=== PATIENT | male | born 1960 | race Caucasian/White ===

== ENCOUNTER 2022-03-02 13:22 | Inpatient (IN) ==
[2022-03-02] MEDS ORDERED: SODIUM CHLORIDE 0.9% 500 ML IV STA (13:34)
--- NOTE | 2022-03-02 13:57 | XRay Report ---
XR chest 1V portable HISTORY: 61 years-old Male Dysrhythmia acute atypical chest pain COMPARISON: Chest radiograph 01/27/2015 TECHNIQUE: Portable AP view of the chest FINDINGS: The cardiac silhouette is enlarged. No pneumothorax, pleural effusion, airspace consolidation or over t pulmonary edema. Degenerative changes of the shoulders and spine. IMPRESSION: Cardiomegaly without acute process. ACT 112: Negative or not required by law. The above report was generated using voice recognition software. It may contain grammatical, syntax o r spelling errors. Electronically signed by: Piotr Chan M.D. 03/02/2022 1:56 PM
[2022-03-02] MEDS ORDERED: dilTIAZem HCl 5 MG/ML 5 ML VIAL IV STA ×2 (14:12→15:10)
[2022-03-02 14:14] LABS: Basophils # (auto) 0.07 K/uL (0-0.2); Basophils % (auto) 0.9 %; Eosinophils # (auto) 0.19 K/uL (0-0.5); Eosinophils % (auto) 2.5 %; Hematocrit (blood only) 42.3 % (42-52); Hemoglobin 14.3 g/dL (14.0-18.0); Immature Granulocytes # (auto) 0.01 K/uL (0.00-0.02); Immature Granulocytes % (auto) 0.1 %; Lymphocytes # (auto) 2.79 K/uL (1.2-3.4); Lymphocytes % (auto) 36.8 %; Mean Corpuscular Hemoglobin 30.8 pg (25-34); Mean Corpuscular Hgb Conc 33.8 g/dL (32-36); Mean Platelet Volume 10.5 fL (7.4-10.4); Monocytes # (auto) 0.85 K/uL (0.11-0.59); Monocytes % (auto) 11.2 %; Neutrophils # (auto) 3.67 K/uL (1.4-6.5); Neutrophils % (auto) 48.5 %; Platelet Count 295 K/uL (130-400); RDW Coefficient of Variation 13.5 % (11.5-14.5); RDW Standard Deviation 44.3 fL (36.4-46.3); Red Blood Count 4.65 M/uL (4.7-6.1); White Blood Count 7.58 K/uL (4.8-10.8)
[2022-03-02 14:17] LABS: Partial Thromboplastin Time 26.2 Seconds (21.0-31.0); Prothrombin Time 10.3 Seconds (9.0-12.0)
--- NOTE | 2022-03-02 14:24 | Emergency Department Note ---
Impression & Plan Atrial flutter with rapid ventricular response, Atrial fibrillation, Near syncope ED Provider Note NAME: SANDRA ARTHUR AGE: 61 SEX: M : 1960 ARRIVES VIA: Walk-In INFORMANT: Patient, ED PROVIDER(S): Chandana Cardoso DO CHIEF COMPLAINT: Palpitations HPI: The patient is a 61-year-old male who presented to the emergency department for an evaluation of palpitations. The patient was noted to have fast heart rate and palpitations over the course the last few weeks. He thinks this could be going on as long as 6 weeks. He states he notices it when he exerts himself. He was having episodes today where he was having shortness of breath with exertion as well as exertional weakness. He was helping move some heavy objects and felt as though he had to lean against a house or else he was going to have near syncope. The patient denies having any lower extremity swelling or pain. He denies having any chest pain. At rest he has no shortness of breath. He states that he called his family doctor today to be seen and was told to go to the emergency department. His significant other has a pulse ox. He checked his heart rate and it was noted to be in the 140's. He does not have a history of alcohol use since 2014. He does not have a history of atrial fibrillation although one time he did have palpitations and was set up with a Holter monitor but no events were found. ROS: See above HPI for pertinent positives & negatives. A total of 10 systems reviewed and were otherwise negative. PAST MEDICAL HISTORY: See Below PAST SURGICAL HISTORY: See Below FAMILY HISTORY: See Below SOCIAL HISTORY: See Below HOME MEDICATIONS: See Below ALLERGIES: See Below VITALS: See Below PHYSICAL EXAMINATION: GENERAL: Patient is awake alert in no acute distress patient is resting comfortably and showing no signs of anxiety EYES: The conjunctivae are clear. The pupils are round and reactive. EARS, NOSE, MOUTH AND THROAT: The nose is without any evidence of any deformity. Mucous membranes are moist. Tongue is midline. NECK: The neck is nontender and supple. RESPIRATORY: Normal respiratory effort is noted there is no evidence of wheezing rhonchi or rales CARDIOVASCULAR: Tachycardic but regular heart sounds are noted auscultation. There is no definite murmur. GASTROINTESTINAL: The abdomen is soft. Abdomen is nontender. MUSCULOSKELETAL/EXTREMITIES: There is no evidence of gross deformity full range of motion is noted in the hips and shoulders. SKIN: There is no obvious evidence of any rash. There are no petechiae, pallor or cyanosis noted. No calf tenderness was noted. NEUROLOGIC: Patient is awake alert and oriented x3. MEDICAL DECISION MAKING: The patient is a 61-year-old male who presented to the emergency department for an evaluation of palpitations and near syncope. The patient was found to be in rapid a flutter initially. He was treated with IV fluids IV magnesium as well as IV Cardizem in the emergency department. He converted to atrial fibrillation with much more rate control. I discussed patient's laboratory and radiographic studies with him. I also discussed his condition with the on-call [facility]ist. Given his presentation he may require further inpatient management. Triage Nursing notes reviewed. Prior medical records reviewed Vital Signs: reviewed and remarkable for tachycardia. Differential diagnosis: Premature contractions, electrolyte abnormality, cardiac dysrhythmia, thyroid dysfunction, pulmonary embolism, infection, gastrointestinal, as well as other pathologies. ER treatment provided: See below Diagnostics interpreted by me: ECG: EKG was obtained in the emergency department. My interpretation is atrial flutter at 138 bpm. No PVCs were noted. Nonspecific ST segment abnormalities were noted. This was compared to a tracing from January 31, 2015. Sinus rhythm has been replaced with atrial flutter. Cardiac Monitoring: An order was placed for continuous cardiac monitoring. The monitor shows a rate of 137 bpm with atrial flutter with RVR Laboratory studies: As stated above and show below. Imaging studies: See below Consultation(s): I discussed this case with Dr. Kumar who is on-call for the [facility]ist group. ED COURSE: Procedures: none Critical Care: I have personally spent greater than 35 minutes of critical care time in the direct management of this patient. This includes bedside care, interpretation of diagnostic studies, and testing, discussion with consultants, patient, and family members, and other required patient management activities. This 35 minutes is in excess of all separately billable procedures. Past Med/Surg History Medical History MTHFR gene mutation Social History Smoking Status: Former smoker Feels Safe at Home: Yes Allergies Allergies Allergy/AdvReac Type Severity Reaction Status Date / Time No Known Allergies Allergy Unverified 01/31/15 11:25 Home Meds Home Medications Medication Instructions Recorded Confirmed Cetirizine (Zyrtec) 10 mg PO QAM #0 tab 07/08/14 FLUTICASONE PROPIONATE (NASAL) 1 - 2 spry ESTHELA DAILY #0 07/08/14 (FLONASE) Albuterol Inhaler (VENTOLIN 2 puff INHALATION QID PRN #5 01/29/15 INHALER) inhaler Azelastine HCl 1 spray NA HS #0 01/29/15 HYPERTONIC NASAL WASH (SINUS RINSE) 1 dose NA BID #0 01/29/15 Hydrocodone-Acetaminophen (Lorcet 1 tab PO BID PRN #0 01/29/15 5-325 mg) MOXIFLOXACIN HCL (AVELOX) 400 mg PO QAM #0 tab 01/29/15 PROBIOTIC PRODUCT (PROBIOTIC) 1 cap PO QAM #0 01/29/15 Prednisone 40 mg PO DIRECTED TAPPERIN #0 01/29/15 tab Results & Data (ED) Vital Signs Vital Signs - 24 hr 03/02/22 13:25 03/02/22 13:59 03/02/22 15:45 Temperature 36.7 C Temperature Source Temporal Artery Scan Pulse Rate 143 H Pulse Rate [Right Finger] 137 H 107 H Pulse Rhythm [Right Finger] Regular Respiratory Rate 20 16 18 Respiratory Effort / Characteristics Non-Labored Spontaneous Non-Labored Respiratory Depth Normal Normal Respiratory Pattern Regular Blood Pressure 120/79 Blood Pressure [Right Arm] 135/96 107/77 Blood Pressure Mean 92 Blood Pressure Mean [Right Arm] 109 87 Blood Pressure Position [Right Arm] Sitting Pulse Oximetry 98 100 96 Oxygen Delivery Method Room Air Sepsis Recent Fever Within 48 Hours No Sepsis New/Unexplained Change in Mental Status No Sepsis Action Taken by Nursing No Action Required Home Medications Current Medication List: was personally reviewed by me Laboratory Data Attestation: I reviewed the patient's lab results. Result diagrams: 03/02/22 13:43 03/02/22 13:43 Lab Results 03/02/22 03/02/22 03/02/22 Range/Units 13:43 13:43 13:43 WBC 7.58 (4.8-10.8) K/uL RBC 4.65 L (4.7-6.1) M/uL Hgb 14.3 (14.0-18.0) g/dL Hct 42.3 (42-52) % MCV 91.0 (80-100) fL MCH 30.8 (25-34) pg MCHC 33.8 (32-36) g/dL RDW Std Deviation 44.3 (36.4-46.3) fL RDW Coeff of Michelle 13.5 (11.5-14.5) % Plt Count 295 (130-400) K/uL MPV 10.5 H (7.4-10.4) fL Immature Gran % (Auto) 0.1 % Neut % (Auto) 48.5 % Lymph % (Auto) 36.8 % [place] % (Auto) 11.2 % Eos % (Auto) 2.5 % Baso % (Auto) 0.9 % Neut # (Auto) 3.67 (1.4-6.5) K/uL Lymph # (Auto) 2.79 (1.2-3.4) K/uL [place] # (Auto) 0.85 H (0.11-0.59) K/uL Eos # (Auto) 0.19 (0-0.5) K/uL Baso # (Auto) 0.07 (0-0.2) K/uL Immature Gran # (Auto) 0.01 (0.00-0.02) K/uL PT 10.3 (9.0-12.0) Seconds INR 1.0 (0.9-1.1) APTT 26.2 (21.0-31.0) Seconds PTT Ratio 1.0 Sodium 138 (136-145) mmol/L Potassium 4.3 (3.5-5.1) mmol/L Chloride 105 (98-107) mmol/L Carbon Dioxide 29 (21-32) mmol/L Anion Gap 4 (3-11) BUN 26 H (6-23) mg/dl Creatinine 1.01 (0.6-1.4) mg/dl Est Cr Clr Drug Dosing 102.7 ml/min Est GFR ( Amer) 93.9 ml/min Est GFR (Non-Af Amer) 81.0 ml/min BUN/Creatinine Ratio 25.7 H (10-20) Glucose 82 (70-99(Fasting)) mg/dl Calcium 9.0 (8.5-10.1) mg/dl Magnesium 2.2 (1.7-2.4) mg/dl Total Bilirubin 0.5 (0.2-1.0) mg/dl AST 22 (13-39) U/L ALT 17 (7-52) U/L Alkaline Phosphatase 67 (34-104) U/L Troponin I High Sens 3.7 (0-20) pg/ml Total Protein 6.8 (6.0-8.3) gm/dl Albumin 4.3 (3.4-5.0) gm/dl Globulin 2.5 (2.5-4.0) gm/dl Albumin/Globulin Ratio 1.7 (0.9-2) TSH (0.300-4.500) uIu/ml Lyme Disease IgG Ab (Negative) Lyme Disease IgM Ab (Negative) 03/02/22 03/02/22 Range/Units 13:43 13:43 WBC (4.8-10.8) K/uL RBC (4.7-6.1) M/uL Hgb (14.0-18.0) g/dL Hct (42-52) % MCV (80-100) fL MCH (25-34) pg MCHC (32-36) g/dL RDW Std Deviation (36.4-46.3) fL RDW Coeff of Michelle (11.5-14.5) % Plt Count (130-400) K/uL MPV (7.4-10.4) fL Immature Gran % (Auto) % Neut % (Auto) % Lymph % (Auto) % [place] % (Auto) % Eos % (Auto) % Baso % (Auto) % Neut # (Auto) (1.4-6.5) K/uL Lymph # (Auto) (1.2-3.4) K/uL [place] # (Auto) (0.11-0.59) K/uL Eos # (Auto) (0-0.5) K/uL Baso # (Auto) (0-0.2) K/uL Immature Gran # (Auto) (0.00-0.02) K/uL PT (9.0-12.0) Seconds INR (0.9-1.1) APTT (21.0-31.0) Seconds PTT Ratio Sodium (136-145) mmol/L Potassium (3.5-5.1) mmol/L Chloride (98-107) mmol/L Carbon Dioxide (21-32) mmol/L Anion Gap (3-11) BUN (6-23) mg/dl Creatinine (0.6-1.4) mg/dl Est Cr Clr Drug Dosing ml/min Est GFR ( Amer) ml/min Est GFR (Non-Af Amer) ml/min BUN/Creatinine Ratio (10-20) Glucose (70-99(Fasting)) mg/dl Calcium (8.5-10.1) mg/dl Magnesium (1.7-2.4) mg/dl Total Bilirubin (0.2-1.0) mg/dl AST (13-39) U/L ALT (7-52) U/L Alkaline Phosphatase (34-104) U/L Troponin I High Sens (0-20) pg/ml Total Protein (6.0-8.3) gm/dl Albumin (3.4-5.0) gm/dl Globulin (2.5-4.0) gm/dl Albumin/Globulin Ratio (0.9-2) TSH 3.836 (0.300-4.500) uIu/ml Lyme Disease IgG Ab Negative (Negative) Lyme Disease IgM Ab Negative (Negative) Administered Medications Magnesium Sulfate/Dextrose (Magnesium Sulfate / D5w) 1 gm in 100 mls @ 100 mls/hr IV Q1H NOEMI Stop: 03/02/22 16:26 Last Admin: 03/02/22 15:41 Dose: 100 mls/hr Documented by: [id number] Infusion: 03/02/22 15:36 Dose: 100 mls/hr Documented by: [id number] Admin: 03/02/22 14:36 Dose: 100 mls/hr Documented by: [id number] Sodium Chloride (Nss 1000ml) 1,000 mls @ 999 mls/hr IV .Q1H1M ONE Stop: 03/02/22 16:13 Last Admin: 03/02/22 15:22 Dose: 999 mls/hr Documented by: [id number] Discontinued Medications Diltiazem HCl (Diltiazem Hcl 5 Mg/Ml 5 Ml Vial) 20 mg IV NOW STA Stop: 03/02/22 14:13 Last Admin: 03/02/22 14:22 Dose: 20 mg Documented by: [id number] Cosigned by: [id number] Sodium Chloride (Nss) 500 mls @ 999 mls/hr IV .Q31M STA Stop: 03/02/22 14:04 Last Infusion: 03/02/22 14:33 Dose: 0 mls/hr Documented by: [id number] Admin: 03/02/22 14:00 Dose: 999 mls/hr Documented by: [id number] Imaging Data Radiologist's Impression: Chest X-Ray 03/02/22 13:34 XR chest 1V portable HISTORY: 61 years-old Male Dysrhythmia acute atypical chest pain COMPARISON: Chest radiograph 01/27/2015 TECHNIQUE: Portable AP view of the chest FINDINGS: The cardiac silhouette is enlarged. No pneumothorax, pleural effusion, airspace consolidation or overt pulmonary edema. Degenerative changes of the shoulders and spine. IMPRESSION: Cardiomegaly without acute process. ACT 112: Negative or not required by law. The above report was generated using voice recognition software. It may contain grammatical, syntax or spelling errors. Electronically signed by: Piotr Chan M.D. 03/02/2022 1:56 PM Discharge Plan Visit Data Chief Complaint: Cardiac Assessment Stated Complaint: TACHYCARDIA, DIZZINESS, SOB, REF BY [facility] ED Provider: Chandana Cardoso Discharge Problem: Atrial flutter with rapid ventricular response, Atrial fibrillation, Near syncope Patient Disposition: Being Evaluated by Hospitalist Forms Stand Alone Forms: [facility] Prescriptions Prescriptions: No Action Cetirizine (Zyrtec) 10 MG tablet 10 mg PO QAM Qty: 0 RF: 0 FLUTICASONE PROPIONATE (NASAL) (FLONASE) 50 MCG/ACT SPR 1 - 2 spry ESTHELA DAILY Qty: 0 RF: 0 Albuterol Inhaler (VENTOLIN INHALER) AEROSOL,SOLN 2 puff Inhalation QID PRN (Reason: WHX) Qty: 5 RF: 0 Azelastine HCl 0.15 % SPR 1 spray NA HS Qty: 0 RF: 0 HYPERTONIC NASAL WASH (SINUS RINSE) 1 POW POW 1 dose NA BID Qty: 0 RF: 0 Hydrocodone-Acetaminophen (Lorcet 5-325 mg) 1 TAB tablet 1 tab PO BID PRN (Reason: Pain) Qty: 0 RF: 0 MOXIFLOXACIN HCL (AVELOX) 400 MG tablet 400 mg PO QAM Qty: 0 RF: 0 PROBIOTIC PRODUCT (PROBIOTIC) 1 CAP capsule 1 cap PO QAM Qty: 0 RF: 0 Prednisone 10 MG tablet 40 mg PO DIRECTED TAPPERIN Qty: 0 RF: 0 Referrals Referrals: Grupo Napier MD [Primary Care Provider] -
[2022-03-02] MEDS: MAGNESIUM SULFATE / D5W 1 GM/100 ML BAG IV SCH ×2 (14:36→15:41)
[2022-03-02 14:37] LABS: Troponin I High Sensitivity 3.7 pg/ml (0-20)
[2022-03-02 14:43] LABS: Albumin Globulin Ratio 1.7 (0.9-2); Albumin Level 4.3 gm/dl (3.4-5.0); BUN Creatinine Ratio 25.7 (10-20); Bilirubin,Total 0.5 mg/dl (0.2-1.0); Creatinine Clr Calc Pharmacy 102.7 ml/min; Est GFR (African American) 93.9 ml/min; Globulin 2.5 gm/dl (2.5-4.0); Magnesium 2.2 mg/dl (1.7-2.4); Potassium 4.3 mmol/L (3.5-5.1); Total Protein 6.8 gm/dl (6.0-8.3)
[2022-03-02] MEDS ORDERED: SODIUM CHLORIDE 0.9% 1000ML 1,000 ML IV ONE (15:13)
[2022-03-02 15:32] LABS: Lyme Ab IgG w/WB Rflx Negative (Negative); Lyme Ab IgM w/WB Rflx Negative (Negative)
[2022-03-02] MEDS ORDERED: dilTIAZem HCl 5 MG/ML 5 ML VIAL IV ONE (17:20)
--- NOTE | 2022-03-02 17:35 | History & Physical Report ---
Date of Service March 02, 2022 Assessment & Plan (1) Atrial fibrillation: Plan: appears to be fib/flutter - RVR -most likely brought on by untreated KANNAN -TSH normal -checking echo ---rate control w metoprolol ---CHADSVasc 0, but MTHFR w prior DVT raises a bit of a conundrum -- by current guidelines would probably be on some semblance of anticoagulation (possibly at reduced dose, but still on one) for the VTE hx, but this doesn't directly interface w afib. d/w pt risks/benefits - will re-discuss tomorrow as well as likely have discussions w PCP (certainly no urgent need for intervention) (2) Sleep apnea: Plan: untreated. sleep study ~7yrs ago - therefore will need repeated. discussed this is likely a culprit for afib, and while treating won't "fix" the afib, it should help make it easier to control (3) MTHFR gene mutation: Plan: w prior VTE - see above. by current guidelines would probably be on some semblance of anticoagulation. discussed as above (4) DVT prophylaxis: Plan: lovenox for now (5) Discharge planning issues: Plan: med/tele, [facility] hospitalists anticipate being able to go home at discharge History of Present Illness Chief Complaint: fluttering and lightheadedness Primary Care Provider: Grupo Napier MD very pleasant 61 yo male. ~6wks ago started with PADGETT/fluttering and weakness. has had some lightheadedness and near syncope. at times has checked pulse ox and HR ~140. eventually with this not getting better he called PCP - who rec'd coming to ER. found to be in afib/flutter - we were asked to admit for further management. notes that ~7yrs ago had sleep study. (+) KANNAN - never followed through for CPAP. med hx - allergies, "sinus issues", MTHFR w DVT ~2004 surg - sinus surgery x2, knee surgery fam hx - mom CHF and MS soc - former smoker, quit tobacco and EtOH in ~2014; works in development at [employer] - see below Allergies Allergy/AdvReac Type Severity Reaction Status Date / Time No Known Allergies Allergy Unverified 03/02/22 16:21 Home Medications Medication Instructions Recorded Confirmed Type Aspirin Low-Strength 81 mg PO QAM 03/02/22 03/02/22 History Zyrtec 10 mg PO QAM 03/02/22 03/02/22 History fluticasone propionate 50 50 mcg INTRANASAL DAILY 03/02/22 03/02/22 History mcg/actuation nasal spray,suspension multivitamin 1 cap PO QAM 03/02/22 03/02/22 History Past Med/Surg History Medical History (Updated 03/02/22 @ 17:52 by Julian Lentz DO) MTHFR gene mutation Social History Smoking Status: Former smoker Feels Safe at Home: Yes Review of Systems Review of Systems: All systems reviewed & are unremarkable except as noted in HPI & below Physical Exam Physical Exam: gen aaox3 pleasant nad heent nc at mmm. cardio irreg irreg tachycardic no r/m/g. lungs cta b/l no rrw good effort abd soft nd nt no masses or organomegaly. ext scattered varicosities no c/c/e no calf tenderness. skin no rashes no pallor or icterus. neuro cn 2-12 grossly intact gross motor/sensory intact. msk - no gross abnormalities normal alignment and mobility. mental - good recent and remote recall normal mood and affect good judgement and insight EKG - aflutter ~140 Results & Data Results & Data ([facility]) Vital Signs (Past 12 Hours) Vital Signs Temp Pulse Pulse Resp BP BP Pulse Ox 03/02/22 17:17 135 H 15 130/89 98 03/02/22 15:45 107 H 18 107/77 96 03/02/22 13:59 137 H 16 135/96 100 03/02/22 13:25 98.1 F 143 H 20 120/79 98 Code Status & VTE Plan VTE Prophylaxis Plan VTE Prophylaxis will be ordered: Yes PG Care Time/CCT Total # of Minutes Spent Total Time Spent with Patient: Total time spent is greater than 50% in coordination of care (as documented) at patient's floor/unit and/or counseling patient: Coding Level of Care Code INT OBSERVATION CARE 70M LVL 3 Diagnoses Atrial fibrillation I48.91 Atrial fibrillation type: unspecified MTHFR gene mutation Z15.89 DVT prophylaxis Z29.9 Discharge planning issues Z02.9 Sleep apnea G47.30 (1) Atrial fibrillation Atrial fibrillation type: unspecified Qualified Code(s): I48.91 - Unspecified atrial fibrillation
[2022-03-02] MEDS ORDERED: ACETAMINOPHEN 325 MG TAB PO PRN (18:18)
[2022-03-02] MEDS ORDERED: METOPROLOL TARTRATE 1 MG/ML VIAL IV STA (18:18)
[2022-03-02] MEDS ORDERED: ONDANSETRON INJ 2 MG/ML 2 ML VIAL IV PRN (18:18)
[2022-03-02] MEDS ORDERED: POLYETHYLENE (MIRALAX) 17 GM PACK PO PRN (18:18)
[2022-03-02] MEDS ORDERED: MAGNESIUM HYDROXIDE SUSP 30 ML UDC PO PRN (18:18)
[2022-03-02] MEDS ORDERED: ALUMINUM/MAGNESIUM SUSP 30 ML UDC PO PRN (18:18)
[2022-03-02] MEDS ORDERED: METOPROLOL TARTRATE 1 MG/ML VIAL IV ONE (18:41)
[2022-03-02] MEDS ORDERED: ENOXAPARIN INJ 40 MG/0.4 ML SYR SQ SCH (19:00)
[2022-03-02] MEDS: METOPROLOL TARTRATE 25 MG TAB PO SCH (20:23)
[2022-03-03] MEDS ORDERED: METOPROLOL TARTRATE 1 MG/ML VIAL IV STA ×2 (00:31→08:40)
[2022-03-03] MEDS: CETIRIZINE HCL 10 MG TABLET PO SCH (07:53)
[2022-03-03] MEDS: METOPROLOL TARTRATE 25 MG TAB PO SCH ×4 (07:53→20:33)
[2022-03-03] MEDS: ASPIRIN 81 MG ECTAB PO SCH (07:54)
[2022-03-03] MEDS: MULTIVITAMIN TAB PO SCH (07:54)
[2022-03-03] MEDS: FLUTICASONE PROPIONATE NA SPR 16 GM BTL NAE SCH (07:54)
[2022-03-03] MEDS ORDERED: METOPROLOL TARTRATE 1 MG/ML VIAL IV ONE (08:47)
--- NOTE | 2022-03-03 11:53 | XCELERA ---
[id number]
--- NOTE | 2022-03-03 15:41 | Hospitalist Progress Note ---
Date of Service March 03, 2022 Assessment & Plan Admission and Anticipated Discharge Date Admission Date: March 02, 2022 Supervising Physician Co-Signing Physician Notes I personally examined the patient and verified all silva points of history and exam, discussed case, and agree with decision making with Yana Olson MS2 feeling more or less the same. HR basically the same. BP has dropped some w meds - has had occassional lightheadedness. ate breakfast, but pending cardiology evaluation has not eaten since, did drink ~4oz apple juice around 1145a vitals noted nad heent nc at mmm breathing unlabored aflutter ~130 persistently on monitor with little to no response when meds are given. no focal neuro deficits aflutter/RVR -no real response to meds, BP marginal precluding reasonable escalation in meds. could consider digoxin loading but given how steady his rates have been in spite of any meds, doubt this would have dramatic effect - probably better to pursue rhythm control - cardiology consulted MTHFR w prior VTE -by current guidelines would likely be on at least a mid dose (if not full dosing) of anticoagulation - discussing further w pt, he is considering otherwise as above Results & Data Results & Data ([facility]) Vital Signs (Past 12 Hours) Vital Signs Temp Pulse Pulse Resp BP BP BP 03/03/22 10:54 37.2 C 131 H 20 90/63 L 03/03/22 09:44 105/74 107/77 03/03/22 08:48 133 H 133 H 115/80 115/80 03/03/22 08:00 36.9 C 134 H 20 114/76 03/03/22 06:07 132 H 105/72 03/03/22 03:12 92/61 L 03/03/22 03:03 36.7 C 128 H 18 74/41 L Pulse Ox 03/03/22 10:54 94 03/03/22 09:44 03/03/22 08:48 03/03/22 08:00 94 03/03/22 06:07 03/03/22 03:12 03/03/22 03:03 96
--- NOTE | 2022-03-03 15:49 | Billing Data ---
Date of Service March 03, 2022 Coding Level of Care Code 79581 Subseq Hosp Care Lvl 3
--- NOTE | 2022-03-03 16:01 | Hospitalist Progress Note ---
Date of Service March 03, 2022 Assessment & Plan (1) Atrial fibrillation: Plan: appears to be fib/flutter - RVR -most likely brought on by untreated KANNAN -TSH normal -echo pending when i saw him - later noted to have what appears to be rate- related cardiomyopathy --no real response to meds, BP marginal precluding reasonable escalation in meds. could consider digoxin loading but given how steady his rates have been in spite of any meds, doubt this would have dramatic effect - probably better to pursue rhythm control - cardiology consulted ---CHADSVasc 0, but MTHFR w prior DVT raises a bit of a conundrum -- by current guidelines would probably be on some semblance of anticoagulation (possibly at reduced dose, but still on one) for the VTE hx, but this doesn't directly interface w afib. d/w pt risks/benefits - will re-discuss tomorrow as well as likely have discussions w PCP (certainly no urgent need for intervention) (2) Sleep apnea: Plan: untreated. sleep study ~7yrs ago - therefore will need repeated. discussed this is likely a culprit for afib, and while treating won't "fix" the afib, it should help make it easier to control, will need new sleep study after discharge (3) MTHFR gene mutation: Plan: w prior VTE - see above. by current guidelines would probably be on some semblance of anticoagulation. discussed as above, he is considering (4) DVT prophylaxis: Plan: lovenox for now (5) Discharge planning issues: Plan: med/tele, [facility] hospital[facility] anticipate being able to go home at discharge (6) Tachycardia induced cardiomyopathy: Plan: low EF, no decompensated CHF at this time. should hopefully improve w rate/rhythm control, probably afterload reduction if he can tolerate (w BP) and time, as well as KANNAN treatment Admission and Anticipated Discharge Date Admission Date: March 02, 2022 Subjective feeling about the same, has had some lightheaded - mostly when BP was lower. HR about the same. no other new complaints Review of Systems Review of Systems: All systems reviewed & are unremarkable except as noted in HPI & below Physical Exam Physical Exam: gen aaox3 pleasant nad heent nc at mmm breathing unlabored no accessory muscles good effort HR aflutter persistent 130's on monitor no real changes. neuro no focal deficits. Results & Data Results & Data ([facility]) Vital Signs (Past 12 Hours) Vital Signs Temp Pulse Pulse Resp BP BP BP 03/03/22 10:54 99.0 F 131 H 20 90/63 L 03/03/22 09:44 105/74 107/77 03/03/22 08:48 133 H 133 H 115/80 115/80 03/03/22 08:00 98.4 F 134 H 20 114/76 03/03/22 06:07 132 H 105/72 Pulse Ox 03/03/22 10:54 94 03/03/22 09:44 03/03/22 08:48 03/03/22 08:00 94 03/03/22 06:07 PG Care Time/CCT Total # of Minutes Spent Total Time Spent with Patient: Total time spent is greater than 50% in coordination of care (as documented) at patient's floor/unit and/or counseling patient: Coding Level of Care Code None Diagnoses Atrial fibrillation I48.91 Atrial fibrillation type: unspecified Sleep apnea G47.30 MTHFR gene mutation Z15.89 DVT prophylaxis Z29.9 Discharge planning issues Z02.9 Tachycardia induced cardiomyopathy R00.0; I43 (1) Atrial fibrillation Atrial fibrillation type: unspecified Qualified Code(s): I48.91 - Unspecified atrial fibrillation
--- NOTE | 2022-03-03 16:45 | Cardiology Consultation ---
Date of Consultation March 03, 2022 Assessment & Plan (1) Atrial flutter with rapid ventricular response: (2) Tachycardia induced cardiomyopathy: (3) Sleep apnea: (4) Dyspnea on exertion: ASSESSMENT/PLAN: 1. Atrial flutter with rapid ventricular response: Discussed the diagnosis in detail. Symptomatic. Onset several weeks ago based on description. Discussed treatment strategies. Recommend caodaism of sinus rhythm. Discussed risks and benefits of transesophageal echo and electrical cardioversion. Also discussed and considered ablation. He is agreeable to move forward with either cardioversion or ablation. He would like to discuss ablation in more detail with electrophysiology. Dr. Gonzalez contacted via telephone and will review ECG and discussed with patient tomorrow. Recommend anticoagulation for stroke risk reduction while attempting to restore sinus rhythm and 4 weeks following. Rate control strategy unlikely to be successful. Can continue beta-doug as tolerated. 2. Cardiomyopathy: Likely tachycardia induced. No angina. He appears euvolemic. Class 2/3 symptoms. Recommend metoprolol succinate if beta-doug tolerated. Would consider NICHOLAS-inhibitor if blood pressure tolerates after beta- doug initiation. If truly related to tachycardia, would expect improvement of LV systolic function after sinus rhythm restored in time. 3. Dyspnea with exertion: Likely related to atrial flutter. He appears euvolemic. 4. Sleep apnea: Recommend treatment. He is considering another sleep study. 5. Disposition: Patient care communicated with Dr. Lentz of the primary hospitalist service. Discussed with Dr. Gonzalez of electrophysiology who plans on meeting with him tomorrow in regards to risks and benefits of ablation. Highly complex medical issues. Thank you for allowing me to participate in the care of your patient. Please call for any other questions or concerns. Sincerely, Augustine Chopra M.D. History of Present Illness Reason for Consultation: Atrial flutter Requesting Physician: Julian Lentz DO Attending Physician: Julian Lentz DO History of Present Illness Mr. Pritchett is a very pleasant 61-year-old gentleman with a history significant for MTHFR with right lower extremity DVT following right foot surgery (approximately 2002)and sleep apnea (untreated). He was hospitalized on 03/02/2022 due to palpitations and lightheadedness. He has been experiencing palpitations since mid December. In mid December he was cutting his grass and felt quite short of breath and has felt palpitations since then. He admits that he had COVID-19 infection in June and recalls feeling dyspneic on exertion in August, but this was attributed to recent COVID-19 infection. While here, he was noted to be in atrial flutter with rapid ventricular response. He was given intravenous metoprolol and also diltiazem. There was some transient improvement in his heart rate with diltiazem, but short-lived. His heart rate throughout today has mostly been 130 beats per minute. He has had intermittent hypotension. He denies shortness of breath at rest, orthopnea, chest pain, syncope, edema, melena, hematochezia, hematuria, or other bleeding. He does not exercise. He was treated with Coumadin for 6 months following DVT in the past and otherwise has not been on anticoagulation therapy. He has not been diagnosed with any cardiac disorder prior to this hospital stay. He denies a history of TIA or stroke, diabetes, hypertension, or vascular disease. He was diagnosed with sleep apnea in approximately 2012 but has not received treatment. Review of systems: As above. Review of systems otherwise negative/unremarkable. Family history: Mother had [facility] at the age of 77. Social history: He quit smoking in 2016 after approximately 2 packs per week for 15 years. He quit alcohol in 2016. No drugs. Lives with his girlfriend. . Three daughters and 1 son (1 daughter is not part of his life). Two grandchildren, however they are not part of his life. He works at [employer], which requires travel. He was unaccompanied in his hospital room. Allergies Allergy/AdvReac Type Severity Reaction Status Date / Time No Known Allergies Allergy Unverified 03/02/22 16:21 Home Medications Medication Instructions Recorded Confirmed Type Aspirin Low-Strength 81 mg PO QAM 03/02/22 03/02/22 History Zyrtec 10 mg PO QAM 03/02/22 03/02/22 History fluticasone propionate 50 50 mcg INTRANASAL DAILY 03/02/22 03/02/22 History mcg/actuation nasal spray,suspension multivitamin 1 cap PO QAM 03/02/22 03/02/22 History Patient History Medical History (Updated 03/03/22 @ 16:57 by Larry Chopra MD) DVT (deep venous thrombosis) MTHFR gene mutation Sleep apnea Social History Smoking Status: Former smoker Hx Alcohol Use: No Hx Substance Use: No Preferred Language: Gambian Management Associate Required: No Beliefs That Will Affect Care: None Current Living Situation: Significant Other Other Information That Helps Us Care for You: No Feels Safe at Home: Yes Safety Concerns: Feels Safe At This Time Assistive Devices: None Physical Exam Physical Exam: Gen.: No acute distress. Alert and oriented. HEENT: Anicteric sclera. Neck: No JVD. No hepatic jugular reflux. No bruits. Normal carotid upstrokes bilaterally. Cardiac: PMI was nondisplaced. No ventricular heave. Regular and tachycardic. Normal S1-S2. No murmurs, rubs, or gallops. Pulmonary: Clear to auscultation bilaterally without wheezes, rales, or rhonchi. Abdomen: Soft, nontender, nondistended, with normoactive bowel sounds. No bruits noted. Extremities: 2+ radial pulses bilaterally. 2+ posterior tibialis pulses bilaterally. Varicose veins right lower extremity. No edema or cyanosis. Psychiatric: Affect appears appropriate. Results & Data ([facility]) Vital Signs (Past 12 Hours) Vital Signs Temp Pulse Pulse Resp BP BP BP 03/03/22 10:54 37.2 C 131 H 20 90/63 L 03/03/22 09:44 105/74 107/77 03/03/22 08:48 133 H 133 H 115/80 115/80 03/03/22 08:00 36.9 C 134 H 20 114/76 03/03/22 06:07 132 H 105/72 Pulse Ox 03/03/22 10:54 94 03/03/22 09:44 03/03/22 08:48 03/03/22 08:00 94 03/03/22 06:07 Laboratory Results Laboratory Results - last 24 hr 03/03/22 05:47 Hepatitis C Ab (EIA) Pending Hep C Ab Signal/Cutoff Pending Laboratory Results - last 48 hr 03/02/22 03/02/22 03/02/22 13:43 13:43 13:43 WBC 7.58 RBC 4.65 L Hgb 14.3 Hct 42.3 MCV 91.0 MCH 30.8 MCHC 33.8 RDW Std Deviation 44.3 RDW Coeff of Michelle 13.5 Plt Count 295 MPV 10.5 H Immature Gran % (Auto) 0.1 Neut % (Auto) 48.5 Lymph % (Auto) 36.8 [place]asta % (Auto) 11.2 Eos % (Auto) 2.5 Baso % (Auto) 0.9 Neut # (Auto) 3.67 Lymph # (Auto) 2.79 [place]asta # (Auto) 0.85 H Eos # (Auto) 0.19 Baso # (Auto) 0.07 Immature Gran # (Auto) 0.01 PT 10.3 INR 1.0 APTT 26.2 PTT Ratio 1.0 Sodium 138 Potassium 4.3 Chloride 105 Carbon Dioxide 29 Anion Gap 4 BUN 26 H Creatinine 1.01 Est Cr Clr Drug Dosing 102.7 Est GFR ( Amer) 93.9 Est GFR (Non-Af Amer) 81.0 BUN/Creatinine Ratio 25.7 H Glucose 82 Calcium 9.0 Magnesium 2.2 Total Bilirubin 0.5 AST 22 ALT 17 Alkaline Phosphatase 67 Troponin I High Sens 3.7 Total Protein 6.8 Albumin 4.3 Globulin 2.5 Albumin/Globulin Ratio 1.7 TSH Lyme Disease IgG Ab Lyme Disease IgM Ab SARS-CoV-2, RNA, NAAT 03/02/22 03/02/22 03/02/22 13:43 13:43 15:42 WBC RBC Hgb Hct MCV MCH MCHC RDW Std Deviation RDW Coeff of Michelle Plt Count MPV Immature Gran % (Auto) Neut % (Auto) Lymph % (Auto) Shasta % (Auto) Eos % (Auto) Baso % (Auto) Neut # (Auto) Lymph # (Auto) Shasta # (Auto) Eos # (Auto) Baso # (Auto) Immature Gran # (Auto) PT INR APTT PTT Ratio Sodium Potassium Chloride Carbon Dioxide Anion Gap BUN Creatinine Est Cr Clr Drug Dosing Est GFR ( Amer) Est GFR (Non-Af Amer) BUN/Creatinine Ratio Glucose Calcium Magnesium Total Bilirubin AST ALT Alkaline Phosphatase Troponin I High Sens Total Protein Albumin Globulin Albumin/Globulin Ratio TSH 3.836 Lyme Disease IgG Ab Negative Lyme Disease IgM Ab Negative SARS-CoV-2, RNA, NAAT NEGATIVE Diagnostic Findings Telemetry personally reviewed: Atrial flutter with rapid ventricular response. ECGs personally reviewed: ECG 03/02/2022 at 6:33 p.m.: Atrial flutter 133 beats per minute. Variable AV block. ECG 03/02/2022 at 1:30 p.m.: Atrial flutter with 2-1 AV conduction 138 beats per minute. ECG 03/03/2022 at 5:39 a.m.: Atrial flutter 132 beats per minute. Echo 03/03/2022: Top-normal LV size. EF 30-35%. Global hypokinesis. Mildly dilated RV with mildly reduced systolic function. Moderate right atrial dilation. Mild MR. Normal RVSP. Chest x-ray 03/02/2022: Cardiomegaly without acute process per Radiology. Medications Administered Current Inpatient Medications Acetaminophen (Acetaminophen 325 Mg Tab) 650 mg PO Q4H PRN PRN Reason: Pain or Fever Stop: 04/01/22 18:17 Al Hydrox/Mg Hydrox/Simethicone (Aluminum/Magnesium Susp 30 Ml Udc) 15 ml PO Q4H PRN PRN Reason: Dyspepsia Stop: 04/01/22 18:17 Aspirin (Aspirin 81 Mg Ectab) [address] [facility] Stop: 04/02/22 08:59 Last Admin: 03/03/22 07:54 Dose: 81 mg Documented by: Cetirizine HCl (Cetirizine Hcl 10 Mg Tablet) [address] [facility] Stop: 04/02/22 08:59 Last Admin: 03/03/22 07:53 Dose: 10 mg Documented by: Fluticasone Propionate (Fluticasone Propionate Na Spr 16 Gm Btl) 1 sprays [facility] D [facility] Stop: 04/02/22 08:59 Last Admin: 03/03/22 07:54 Dose: 1 sprays Documented by: Magnesium Hydroxide (Magnesium Hydroxide Susp 30 Ml Udc) 30 ml PO Q12H PRN PRN Reason: Constipation Stop: 04/01/22 18:17 Metoprolol Tartrate (Metoprolol Tartrate 25 Mg Tab) 25 mg PO QID [facility] Stop: 04/02/22 08:59 Last Admin: 03/03/22 16:51 Dose: Not Given Documented by: Multivitamins (Multivitamin Tab) [address] [facility] Stop: 04/02/22 08:59 Last Admin: 03/03/22 07:54 Dose: 1 tab Documented by: Ondansetron HCl (Ondansetron Inj 2 Mg/Ml 2 Ml Vial) 4 mg IV Q6H PRN PRN Reason: Nausea Stop: 04/01/22 18:17 Polyethylene Glycol (Polyethylene (Miralax) 17 Gm Pack) 17 gm PO DAILY PRN PRN Reason: Constipation Stop: 04/01/22 18:17 PG Care Time/CCT Total # of Minutes Spent Total Time Spent with Patient: Total time spent is greater than 50% in coordination of care (as documented) at patient's floor/unit and/or counseling patient: Coding Level of Care Code 75450 Inpt Consult Level 5 Diagnoses Atrial flutter with rapid ventricular response I48.92 Tachycardia induced cardiomyopathy R00.0; I43 Sleep apnea G47.30 Dyspnea on exertion R06.00
--- NOTE | 2022-03-03 21:43 | Electrocardiogram Report ---
Test Reason : Blood Pressure : / mmHG Vent. Rate : 138 BPM Atrial Rate : 276 BPM P-R Int : 000 ms QRS Dur : 088 ms QT Int : 356 ms P-R-T Axes : 176 -22 001 degrees QTc Int : 539 ms Atrial flutter with 2:1 A-V conduction Abnormal ECG When compared with ECG of 31-JAN-2015 10:38, Atrial flutter has replaced Sinus rhythm Vent. rate has increased BY [address] now depressed in Inferior leads T wave inversion more evident in Inferior leads Confirmed by Larry Chopra ([id number]) on 03/03/2022 9:42:42 PM Referred By: Grupo Napier Confirmed By:Larry Chopra
--- NOTE | 2022-03-04 06:06 | Electrocardiogram Report ---
Test Reason : Blood Pressure : / mmHG Vent. Rate : 130 BPM Atrial Rate : 130 BPM P-R Int : 150 ms QRS Dur : 110 ms QT Int : 290 ms P-R-T Axes : 089 -33 -06 degrees QTc Int : 426 ms Atrial flutter with rapid ventricular response Left axis deviation Poor R wave progression, consider anterior ME vs. lead placement vs. LVH Abnormal ECG When compared with ECG of 02-MAR-2022 13:30, No significant change Confirmed by Larry Chopra ([id number]) on 03/04/2022 6:06:29 AM Referred By: Grupo Napier Confirmed By:Larry Chopra
--- NOTE | 2022-03-04 06:24 | Electrocardiogram Report ---
Test Reason : Blood Pressure : / mmHG Vent. Rate : 132 BPM Atrial Rate : 264 BPM P-R Int : 000 ms QRS Dur : 126 ms QT Int : 406 ms P-R-T Axes : 086 -29 026 degrees QTc Int : 601 ms Atrial flutter with 2:1 A-V conduction Non-specific intra-ventricular conduction block T wave abnormality, consider inferior ischemia Abnormal ECG When compared with ECG of 02-MAR-2022 18:33, No significant change Confirmed by Larry Chopra ([id number]) on 03/04/2022 6:23:43 AM Referred By: Grupo Napier Confirmed By:Larry Chopra
[2022-03-04] MEDS: METOPROLOL TARTRATE 25 MG TAB PO SCH ×2 (08:44→20:04)
[2022-03-04] MEDS: MULTIVITAMIN TAB PO SCH (08:44)
[2022-03-04] MEDS: ASPIRIN 81 MG ECTAB PO SCH (08:44)
[2022-03-04] MEDS: FLUTICASONE PROPIONATE NA SPR 16 GM BTL NAE SCH (08:45)
[2022-03-04] MEDS: CETIRIZINE HCL 10 MG TABLET PO SCH (08:45)
--- NOTE | 2022-03-04 15:06 | Cardiology Consultation ---
Date of Consultation March 04, 2022 Assessment & Plan (1) Atrial flutter with rapid ventricular response: 1. Atrial flutter: Based on his description of symptoms he has likely had an atrial flutter for several weeks. It is very possible that his reduced LV function is related to his sustained high heart rates. This appears to be a typical right atrial flutter based on his EKG. Does have some right ventricular and right atrial enlargement. Curiously, he seems to have been diagnosed with sleep apnea a few years ago. This has been untreated and likely represents an etiology for his arrhythmia and echocardiographic findings. We discussed the options for treatment. Efforts at rate control have not been effective in our quite difficult in the setting of atrial flutter. He will require a rhythm control strategy. We discussed the option of cardioversion versus catheter based therapy. I did recommend catheter based therapy and he seems amenable. Because he has not been anticoagulated in his arrhythmia has been sustained he will require a transesophageal echocardiogram immediately prior to any procedure. In the absence of left atrial thrombus will plan on proceeding with ablation tomorrow. Subsequently he will require anticoagulation for 1 month. In the absence of any recurrent arrhythmia it could likely be discontinued at that time. I would agree with screening for sleep apnea and treatment if discovered. We discussed the fact that many patients who have atrial flutter often go on to develop atrial fibrillation at some point as well. Hopefully with a return to sinus rhythm and controlled heart rates his ventricular function will return to normal. History of Present Illness Reason for Consultation: Atrial flutter Requesting Physician: Keysha Attending Physician: Julian Lentz DO History of Present Illness the patient is a 61-year-old gentleman without a known history of cardiac disease who was discovered to have an elevated heart rate at home. Patient states that for several weeks he has been experiencing an element of exercise intolerance manifest primarily by fatigue and dyspnea. He has also had episodes of significant dizziness and presyncope. He had a vague sensation of abnormality in the left upper chest. However, he did not specifically notice palpitations or elevated heart rate. His girlfriend had a pulse oximeter. He randomly placed a pulse oximeter on his finger and noticed an elevated heart rate. Based on that finding he was advised to go to the emergency room by his primary care physician where he was discovered to have atrial flutter. Subsequent evaluation in the hospital revealed reduced LV systolic function as well. He is currently feeling fairly well. However, with sudden movements he does have an element of dizziness or lightheadedness. He also has an element of dyspnea with activity. He feels slightly more short of breath today than he did yesterday. Allergies Allergy/AdvReac Type Severity Reaction Status Date / Time No Known Allergies Allergy Unverified 03/02/22 16:21 Home Medications Medication Instructions Recorded Confirmed Type Aspirin Low-Strength 81 mg PO QAM 03/02/22 03/02/22 History Zyrtec 10 mg PO QAM 03/02/22 03/02/22 History fluticasone propionate 50 50 mcg INTRANASAL DAILY 03/02/22 03/02/22 History mcg/actuation nasal spray,suspension multivitamin 1 cap PO QAM 03/02/22 03/02/22 History Patient History Medical History (Updated 03/03/22 @ 16:57 by Larry Chopra MD) DVT (deep venous thrombosis) MTHFR gene mutation Sleep apnea Social History Smoking Status: Former smoker Hx Alcohol Use: No Hx Substance Use: No Preferred Language: Swedish Communication Ability: Effective [employer] Required: No Beliefs That Will Affect Care: None marital status: Single Current Living Situation: Significant Other Other Information That Helps Us Care for You: No Feels Safe at Home: Yes Safety Concerns: Feels Safe At This Time Assistive Devices: None Review of Systems Review of Systems: Per HPI Physical Exam Physical Exam: Gen.: No acute distress. Alert and oriented. answered all questions appropriately HEENT: Anicteric sclera. Cardiac: regular rhythm but elevated rate. No murmurs. Pulmonary: Normal respiratory effort Extremities: No edema or cyanosis. Psychiatric: Affect appears appropriate. Results & Data ([facility]) Vital Signs (Past 12 Hours) Vital Signs Temp Pulse Resp BP Pulse Ox 03/04/22 07:21 36.5 C 132 H 20 107/74 94 03/04/22 03:00 36.3 C L 136 H 18 98/65 L 94 Laboratory Results Abnormal Lab Results 03/03/22 05:47 Hepatitis C Ab (EIA) NON-REACTIVE Hep C Ab Signal/Cutoff 0.01 Diagnostic Findings echocardiogram performed 03/03/2022: Ejection fraction 30 35 percent. Global hypokinesis. Mild LVH. Mildly dilated right ventricle and atrium. Mild mitral regurgitation. PG Care Time/CCT Total # of Minutes Spent Total Time Spent with Patient: Total time spent is greater than 50% in coordination of care (as documented) at patient's floor/unit and/or counseling patient: Coding Level of Care Code 45428 Inpt Consult Level 4 Diagnoses Atrial flutter with rapid ventricular response I48.92
--- NOTE | 2022-03-04 17:34 | Hospitalist Progress Note ---
Date of Service March 04, 2022 Assessment & Plan (1) Atrial fibrillation: Plan: appears to be fib/flutter - RVR -most likely brought on by untreated KANNAN -TSH normal -echo showing rate-related cardiomyopathy --no real response to meds, BP marginal precluding reasonable escalation in meds. for ablation tomorrow -anticoagulation per cardiology recs short term - see below [facility]NA[facility] -for sleep study, treatment - as outpt MTHFR mutation -w prior VTE -short term anticoagulation will be related to ablation/etc, longer term d/w pt that by newer guidelines since he has a hypercoag state and formed clot before - reasonable to continue with some degree of blood thinner more indefinitely Admission and Anticipated Discharge Date Admission Date: March 03, 2022 Subjective feeling good overall pleased with care appreciative of cardiology - for ablation tomorrow. no new complaints Review of Systems Review of Systems: All systems reviewed & are unremarkable except as noted in HPI & below Physical Exam Physical Exam: gen aao pleasant nad heent nc at mmm breathing unlabored no accessory muscles good effort skin no rashes no pallor or icterus neuro no focal deficits. still aflutter 130's Results & Data Results & Data ([facility]) Vital Signs (Past 12 Hours) Vital Signs Temp Pulse Resp BP BP Pulse Ox 03/04/22 14:53 97.5 F L 131 H 18 122/82 99 03/04/22 07:21 97.7 F 132 H 20 107/74 94 PG Care Time/CCT Total # of Minutes Spent Total Time Spent with Patient: Total time spent is greater than 50% in coordination of care (as documented) at patient's floor/unit and/or counseling patient: Coding Level of Care Code 29278 Subseq Hosp Care Lvl 2 Diagnoses Atrial fibrillation I48.91 Atrial fibrillation type: unspecified (1) Atrial fibrillation Atrial fibrillation type: unspecified Qualified Code(s): I48.91 - Unspecified atrial fibrillation
--- NOTE | 2022-03-05 07:55 | Pre Anesthesia Assessment ---
Date of Service March 05, 2022 Pre Sedation Assessment Vital Signs Temp Pulse Pulse Pulse Resp BP BP 03/05/22 07:50 36.5 C 131 H 132 H 18 108/74 03/05/22 03:31 88/58 L 03/05/22 02:44 36.5 C 133 H 16 93/63 L 03/05/22 00:10 136 H 03/04/22 23:08 36.9 C 135 H 16 112/76 03/04/22 18:45 36.5 C 138 H 19 105/69 03/04/22 17:36 131 H 03/04/22 14:53 36.4 C L 131 H 18 122/82 Pulse Ox 03/05/22 07:50 94 03/05/22 03:31 03/05/22 02:44 95 03/05/22 00:10 03/04/22 23:08 94 03/04/22 18:45 96 03/04/22 17:36 03/04/22 14:53 99 Cardiovascular + tachycardic Respiratory + respiratory effort normal Pre-Sedation Airway Assessment Smoking Status: Former smoker Hx Sleep Apnea: Yes Hx Difficult Intubation: No Short, Thick Neck: No Thyromental Distance: > or= 3.5 Finger Breadths Oral Cavity: + WNL Mallampati Class: III ASA: ASA2 Procedure Planning Contraindications for Sedation: none Current Medications Reviewed: Yes Notes The planned sedation has been discussed with the patient. Informed Consent was obtained. I have identified the patient, determined the appropriateness of sedation and have assessed the patient immediately prior to the procedure. All medicine(s) and interventions are by my order.
[2022-03-05] MEDS ORDERED: MIDAZOLAM HCL 5 MG/ML 1 ML VIAL ONE (08:06)
[2022-03-05] MEDS ORDERED: fentaNYL citrate 100 MCG/2 ML VIAL ONE (08:06)
[2022-03-05] MEDS ORDERED: BENZOCAINE/TETRACAIN/BUTAM 50 APPLN/5 GM CAN EXT ONE (08:07)
[2022-03-05] MEDS: MULTIVITAMIN TAB PO SCH (08:21)
[2022-03-05] MEDS: ASPIRIN 81 MG ECTAB PO SCH (08:21)
[2022-03-05] MEDS: METOPROLOL TARTRATE 25 MG TAB PO SCH (08:21)
[2022-03-05] MEDS: FLUTICASONE PROPIONATE NA SPR 16 GM BTL NAE SCH (08:21)
[2022-03-05] MEDS: CETIRIZINE HCL 10 MG TABLET PO SCH (08:21)
[2022-03-05] MEDS ORDERED: HEPARIN (PORCINE) 1000 UNIT/ML 10 ML (CATH LAB USE ONLY) ONE (08:47)
[2022-03-05] MEDS ORDERED: oxyCODONE HCL IR 5 MG TAB (IMMEDIATE RELEASE) PO PRN (10:00)
--- NOTE | 2022-03-05 10:00 | Electrophysiology Report ---
Date of Service March 05, 2022 Electrophysiology Procedure Electrophysiology Procedure Report procedure performed: Ablation of SVT, complete electrophysiologic testing including pacing from the left atrium via the coronary sinus, arrhythmia induction using programmed stimulation and burst atrial pacing, 3 dimensional electro anatomical mapping Staff coal yard supervisor: Ko Gonzalez MD Indication: The patient is a 61-year-old gentleman presented with persistent atrial flutter. He has an associated cardiomyopathy. We discussed options for treatment and he elected to undergo catheter based therapy for potential cure. Procedure detail: The patient was informed the risks benefits and alternatives to the intended procedure. He understood which proceed. He was taken to the electrophysiology suite in a fasting state. Conscious sedation was administered per protocol the patient was monitored electrocardiographically throughout today's procedure. The right femoral area was prepped and draped in usual sterile fashion. This area was anesthetized using subcutaneous administration of a lidocaine and Marcaine solution. The right femoral vein was subsequently accessed 3 times using modified Seldinger technique and sheath were placed over guidewires at this site. The sheath was used facilitate passage of the catheters to perform the study. This included coronary sinus, right ventricular and roving right atrial ablation catheter. Patient's baseline arrhythmia was characterize. Once the elements of the tachycardia were known electro anatomical mapping was also performed. Radiofrequency ablation was subsequently carried out in a linear fashion through the caval tricuspid isthmus until the arrhythmia terminated. Repeat electrophysiologic testing was then performed including an attempt at arrhythmia induction using burst atrial pacing. Repeat electro anatomical mapping was also performed in order to confirm bidirectional block through the caval tricuspid isthmus. At the conclusion of the procedure the catheters and sheaths were removed. Hemostasis was achieved at the access site using manual pressure. The patient tolerated procedure well. There were no immediate complications. Findings: Baseline tachycardia baseline tachycardia cycle length was 223 milliseconds. Electro anatomical mapping revealed the entire cycle length to be present in the right atrium. Concealed entrainment with a short post pacing interval was obtained from pacing at the proximal coronary sinus. Manifest entrainment with a long post pacing interval was obtained with pacing from the distal coronary sinus. Electro anatomical mapping suggested typical counter-clockwise isthmus dependent right atrial flutter. Ablation: Ablation was performed in a power limited mode. Ablation was performed with an 8 Turkmen 3.5 mm irrigated force sensing radiofrequency ablation catheter. Radiofrequency lesions were placed in linear fashion through the caval tricuspid isthmus until the tachycardia terminated. Repeat lesions were placed until bidirectional block was obtained. A ramp sheath was also employed for catheter stability and reach to the tricuspid annulus. Arrhythmia induction attempts at arrhythmia induction was then performed by burst atrial pacing from the medial and lateral aspects of the caval tricuspid isthmus down to cycle length 240 milliseconds. Post ablation intervals cycle length in the atrium 744 milliseconds Cycle length in the ventricle 731 milliseconds AH interval 99 milliseconds HV interval 37 milliseconds DE interval 166 milliseconds QRS duration 80 milliseconds QT 346 milliseconds Av Wenckebach occurred at 280 milliseconds Av node effective refractory period was 240 milliseconds Retrograde conduction with ventricular pacing was poor but concentric impression: Successful creation of bidirectional block through the caval tricuspid isthmus rendering typical isthmus dependent right atrial flutter noninducible Normal baseline conduction intervals subsequent to ablation No evidence of accessory pathway conduction [facility] Electrophysiology codes EP Procedure 1: Electrophysiology: 76790 EPS and Ablation SVT Procedure 2: Electrophysiology: 10363-38 Comp EPS w/LA pacing Procedure 3: Electrophysiology: 09311 3D mapping Procedure 4: Electrophysiology: 20192 Comp EPS with induction PG Moderate Sedation Codes Moderate Sedation Codes Procedure 1: Sedation/Anesthesia: 97464 Mod Sedation by the same physician;Init15 Min Child Age 5 & Up Procedure 2: Sedation/Anesthesia: 77052 Mod Sedation by the same physician; Ea [id number] Minutes
--- NOTE | 2022-03-05 10:00 | Post Anesthesia Assessment ---
Date of Service March 05, 2022 Post Sedation Assessment Vital Signs Temp Pulse Pulse Pulse Resp BP BP 03/05/22 08:00 134 H 16 105/77 03/05/22 07:50 36.5 C 131 H 132 H 18 108/74 03/05/22 03:31 88/58 L 03/05/22 02:44 36.5 C 133 H 16 93/63 L 03/05/22 00:10 136 H 03/04/22 23:08 36.9 C 135 H 16 112/76 03/04/22 18:45 36.5 C 138 H 19 105/69 03/04/22 17:36 131 H 03/04/22 14:53 36.4 C L 131 H 18 122/82 Pulse Ox 03/05/22 08:00 97 03/05/22 07:50 94 03/05/22 03:31 03/05/22 02:44 95 03/05/22 00:10 03/04/22 23:08 94 03/04/22 18:45 96 03/04/22 17:36 03/04/22 14:53 99 Recovery Score Activity: Moves 4 extremities Respiration: Deep Breath/Cough Circulation: +/-20% PreAnes Value Consciousness: Arouseable (by name) Oxygen Saturation: O2 needed for >90% Discharge Sedation Level of Care: Fast Track Phase II Post Sedation Plan On clinical assessment, the patient appears to have tolerated the sedation without complications. Patient is recovering as anticipated. Patient will continue to be monitored by nursing and may be discharged when sedation discharge criteria are met per below protocol. Upon Completions of procedure up to 15 minutes continue every 5 minute vital signs and the P.A.R. score; then discharge to a Phase I or Fast Track to Phase II per the following guidelines: * Discharge Patient to appropriate Phase II area if PAR is 8 or greater or return to pre- procedure baseline. The post - procedure orders will be as directed. * If PAR score is less than 8 or not return to pre-procedure baseline then patient will follow Phase I monitoring till PAR is reached for Phase II. The Phase I may be done in procedure room or may call to secure a Phase I area. * If naloxone or flumazenil are used for reversal, hold in Phase I for continued monitoring from when last reversal dose was given for a minimum of 60 minutes or longer pending the nurse and/or physician discretion of patient condition before discharge to Phase II. Please call the Sedation Physician to re-evaluate and complete post-note for discharge to Phase II area. Do NOT discharge from procedure sedation or Phase 1 until post- sedation evaluation note is complete by procedure /sedation MD Sedation Discharge Instructions to be given to the patient at discharge to home.
--- NOTE | 2022-03-05 16:11 | XCELERA ---
[id number]
--- NOTE | 2022-03-05 17:55 | Discharge Summary ---
Date of Service March 05, 2022 Principal Diagnosis A flutter Discharge Exam General he is awake and alert pleasant no distress. HEENT normocephalic atraumatic mucous membranes moist. Breathing unlabored no accessory muscle use good effort. Skin shows no rashes no pallor or icterus. Cardio is now sinus at about 100. Neuro shows cranial nerves II through XII be grossly intact gross motor and sensory are intact no focal deficits. Discharge Data Allergies Allergy/AdvReac Type Severity Reaction Status Date / Time No Known Allergies Allergy Unverified 03/02/22 16:21 Consultations 03/02/22 15:45 ED Decision to Admit Stat 03/03/22 10:10 Consult Cardiology Routine Procedures Performed Operation Date: 03/05/22 08:00 Actual Procedures p EPS + Ablation for SVT Flutter - Ko Gonzalez MD p 3D Mapping (Carto) - Ko Gonzalez MD s Transesophageal Echo - Ko Gonzalez MD Ordered Studies 03/05/22 06:45 EP Lab Images for PACS ONCE Hospital Course (1) Atrial fibrillation: appears to be fib/flutter - RVR -most likely brought on by untreated KANNAN -TSH normal -echo showing rate-related cardiomyopathy -- After no real response to meds, BP marginal precluding reasonable escalation in meds he was seen by cardiology and taken for an ablationthat was done this morning and was successful. -safe/stable for home, anticoagulation w xarelto rate related cardiomyopathy/systolic dysfunction -No evidence of coronary disease, hopefully EF should respond nicely over time with rate control -Metoprolol succinate 25 mg daily per cardiology, depending on his blood pressures as he follows them as an outpatient, as well as based on how much and how quickly his EF improves, can also consider additional afterload reduction with NICHOLAS/ARB KANNAN -for sleep study, treatment - as outpt MTHFR mutation -w prior VTE -short term anticoagulation will be related to ablation/etc, longer term d/w pt that by newer guidelines since he has a hypercoag state and formed clot before - reasonable to continue with some degree of blood thinner more indefinitely, but discussed with him that also given that he has gone 15+ years without a clot, it could also be reasonable for watchful waitingasked him to discuss with his PCP further. Total Time Total Time Spent Total Time Spent (In Minutes): >30 Discharge Plan Discharge Items Patient Disposition: Home - Self-Care Reason For Visit: AFIB RVR Discharge Diagnosis: atrial flutter Activity: Resume your previous activity Non-emergency contact: Primary Care Provider and Car Rental Agent Call non-emergency contact if: you have any medication questions and your s ymptoms worsen Follow-up/Referrals: Grupo Napier MD [Primary Care Provider] - 03/08/22 9:10 am Diet: Low Sodium (2gm) Addtl Attending Provider Instructions: Atrial flutter -The main problem that landed on the hospital was atrial flutter. As we discussed, this is a fast irregular heartbeat, where the wiring in the atria have started to become dysfunctional causing the heart to race -Fortunately atrial flutter is much more manageable than it used to be, and Dr. Gonzalez was able to perform an ablation today which has gone well -Because the ablation went well, we can work off of the assumption that the atrial flutter is "fixed" while obviously needing to continue to follow you closely -Postablation, we recommend having you on a blood thinner for at least the near futureDrNato Gonzalez had recommended Xarelto, it appears in the computer that it is covered, and as we discussed of all of the direct oral anticoagulants, they are mostly the sameand for your purposes might as well be identicaland so for a situation like yours my main "decision point" between Xarelto, Eliquis, or Pradaxa would be which one is covered -The cardiology office will be calling you to get follow-up set up for the next week or 2 Weakened heart muscle -Your heart muscle is weaker than normal, with a squeeze (ejection fraction) of about 30 to 35%. For reference, normal is about 60%. -Because you do not show any evidence of coronary disease, and there is no other worrisome cause at play, it is almost certain that the reduced squeeze is simply from your heart racing and atrial flutter for likely the last 6 weeks -This means that hopefully over time with control of the heart rate, your heart muscle should get stronger again. The cardiology office will be following that by echocardiogram over the near future -To try to take strain off of your heart, they recommended that we send you home on a low-dose of metoprololonce a dayand then they will continue to adjust medicines as possible -Follow your blood pressure at homeprobably randomly2-3 times a dayso that we can get a good feel for where your pressures are running, as sometimes it can be helpful to adjust the dose of metoprolol, and and other times it can be useful to add medicines that reduce the back pressure on the heart, so that the heart has the ability to get stronger. This is only possible if we have enough "blood pressure to work with"because obviously we do not want to put you on any medicines that make your blood pressure drop too far -Metoprolol is usually well-tolerated. If you were to have side effects (which are unlikely) the most common would be fatigue/weakness/lightheadedness. If any of these occur, let cardiology or Dr. Napier know Sleep apnea -As we discussed, atrial rhythm issues are a fairly common "Thal out" from untreated sleep apnea. To that end, getting her sleep apnea treated will be very helpful in keeping all of this under control, and making it far less likely for things to happen again. -Unfortunately, the single most effective way to treat sleep apnea CPAP (along with lifestyle change) and to get that set up, we will need to get you set up for a repeat sleep study since it has been a while since her last one. Also as we discussed, most people are able to get used to CPAP over a month or so as long as they set their mind to it. The huge majority of people that I have seen who "cannot tolerate" their CPAP are usually because they have decided ahead of time that they will not tolerate it. There are multiple different ways that the device can be attached, multiple masks/etc.and so for most people, while it may take a little bit of "tinkering" with the [email or web address], almost everybody gets used to it if they choose to MTHFR/prior clots -As we have discussed, when you had the clots the guidelines were differentduring that time you would treat a clot for 3 to 6 months with blood thinners, and unless the person was a "repeat offender" (clotting multiple times) they would not need to be on blood thinners for a long duration -By newer guidelinesfrom about 2016the guidelines now would recommend that if somebody has formed a clot, and has irreversible reasons to form future clots (such as MTHFR) then it is recommended to be on some dosing of blood thinner indefinitely (often at a reduced dose compared to "full anticoagulation" dosing) -For now, we need to have you on the Xarelto at "full" dosing post ablation, when cardiology feels this could be reduced, the question would be whether or not to stop the blood thinner altogether, or reduced to a lower dose (such as 10 mg of Xarelto). The 2 ways to think about this would be that by newer guidelines, you should, given that the MTHFR does not go away, and the risk of developing new clots is always there. The other way to think about it would be to say that you have been off of blood thinners for more than 15 years with no repeated clotting, and therefore by practical measures, you are likely doing well enough that monitoring with repeat blood thinner if you clot again would be a reasonable strategy. Definitely talk with Dr. Napier more about this. As we discussed, I come to the discussion from the very biased perspective of a hospitalistas I am the doctor that takes care of people when they formed clots again, but not the doctor takes care of people whenever everything is going well. To that end I would be more in favor of being on some dose of a blood thinner indefinitely, but it definitely warrants more thought and discussion then my perspective alone. Pending Studies at Discharge: No Stand-Alone Forms: [facility] [employer], Smoking Cessation Medications and DC Order Prescriptions: New Xarelto 20 mg Tablet 20 mg PO DAILY Qty: 30 RF: 0 metoprolol succinate 25 mg tablet extended release 24 hr 25 mg PO DAILY Qty: 30 RF: 0 Continued fluticasone propionate 50 mcg/actuation spray,suspension 50 mcg INTRANASAL DAILY RF: 0 Zyrtec 10 MG 10 mg PO QAM RF: 0 multivitamin 1 CAP 1 cap PO QAM RF: 0 Discontinued Aspirin Low-Strength 81 MG 81 mg PO QAM RF: 0 Discharge Orders: Discharge Order (Routine); Ordered 03/05/22 Ordered By: Julian Lentz Admission Data Admit Date/Time: 03/03/22 15:49 Attending Provider: Julian Lentz Admit Provider: Julian Lentz Primary Care Provider: Grupo Napier Other Providers: Gurpo Kumar ; Larry Chopra Other Interventions: Discharge Summary Assessment (RN) Last Done: 03/05/22 17:12 Coding Level of Care Code D/C DAY MANAGEMENT >30 MINS Diagnoses Atrial fibrillation I48.91 Atrial fibrillation type: unspecified
[2022-03-05] MEDS ORDERED: RIVAROXABAN 20 MG TAB PO SCH (20:00)
--- NOTE | 2022-03-06 06:23 | Electrocardiogram Report ---
Test Reason : Blood Pressure : / mmHG Vent. Rate : 083 BPM Atrial Rate : 083 BPM P-R Int : 172 ms QRS Dur : 090 ms QT Int : 372 ms P-R-T Axes : 047 -22 012 degrees QTc Int : 437 ms Normal sinus rhythm Possible Left atrial enlargement Minimal voltage criteria for LVH, may be normal variant ( R in aVL ) Borderline ECG When compared with ECG of 03-MAR-2022 05:39, Sinus rhythm has replaced Atrial flutter Confirmed by Larry Chopra ([id number]) on 03/06/2022 6:23:41 AM Referred By: Grupo Napier Confirmed By:Larry Chopra
--- NOTE | 2022-03-06 06:40 | Electrocardiogram Report ---
Test Reason : Blood Pressure : / mmHG Vent. Rate : 094 BPM Atrial Rate : 094 BPM P-R Int : 188 ms QRS Dur : 090 ms QT Int : 360 ms P-R-T Axes : 053 -20 031 degrees QTc Int : 450 ms Poor data quality, interpretation may be adversely affected Normal sinus rhythm Possible Left atrial enlargement Poor R wave progression, consider anterior OH vs. lead placement vs. LVH Nonspecific T wave abnormality Abnormal ECG When compared with ECG of 05-MAR-2022 10:21, No significant change was found Confirmed by Larry Chopra ([id number]) on 03/06/2022 6:39:44 AM Referred By: Grupo aNpier Confirmed By:Larry Chopra
== END 2022-03-05 17:45 | disposition home or self-care (01) | DRG 274 ==
LOC: ED 13:22 → 2N 13:22 → 2E 03-05 10:03
PROC: CLS.TEE (2022-03-05 08:00)